=== PATIENT | female | born 1995 | race Caucasian/White ===

== ENCOUNTER → 2019-09-16 13:13 | Outpatient (CLI) | payer BC, SELFPAY ==
--- NOTE | 2019-09-16 13:23 | US_ITS ---
PROCEDURE: US TRANSVAGINAL CLINICAL INDICATION: IRREGULAR PERIODS COMPARISON: No exams were available for comparison FINDINGS: UTERUS: 7cm x 4cmx 3cm with a combined endometrial thickness of 6.2mm LEFT OVARY: [id number] with a volume of 11.4ml. RIGHT OVARY: [id number] with a volume of 12ml. There are small bilateral ovarian follicles. The number of follicles do not meet the criteria for polycystic ovaries. The size of the ovaries made indicate polycystic ovaries. No dominant cyst evident. No cul-de-sac fluid IMPRESSION: Mildly enlarged ovaries with multiple small follicles. The bilateral ovarian volume of greater than 10 mL with a suggest polycystic ovaries. Please correlate with clinical parameters. Dictated b Lucho Petersen MD 09/16/2019 14:47 Lucho Petersen MD in OV 09/16/2019 14:47
== END ==
PROVIDERS: PCP Physician Assistant; Visit Provider Physician Assistant
DX: N92.6 Irregular menstruation, unspecified (principal)
CPT/HCPCS: 76830